=== PATIENT | male | born 1950 ===

== ENCOUNTER 2022-04-05 08:00 | Inpatient (IN) | payer OTHER ==
[~2022-04-05] VITALS: Ht 167.6 cm; Wt 72.6 kg
[~2022-04-05 08:00] MED LIST: CLONAZEPAM1 MG PO; DOCUSATE SODIU100 MG PO; METFORMIN HCL500 MG PO; PERCOCET 5/3251 TAB PO
[2022-04-16] MEDS ORDERED: TAMSULOSIN HCL0.4 MG (10:59)
[2022-04-16] MEDS ORDERED: FLONASE16 GM (10:59)
[2022-04-16] MEDS ORDERED: JANUVIA100 MG (10:59)
[2022-04-16] MEDS ORDERED: MEDROLPACK PO (12:41)
[2022-04-16] MEDS ORDERED: AMOX-CLAV 875-1 EACH PO (12:41)
[2022-04-16] MEDS ORDERED: PERCOCET 5-3251 EACH PO (12:41)
[2022-04-16] MEDS ORDERED: NEURONTIN800 MG PO (12:41)
[2022-04-16] MEDS ORDERED: COLACE100 MG PO (12:42)
== END 2022-04-18 10:21 | disposition home or self-care (01) | DRG 455 ==
LOC: ADM 08:00 → O/R 04-16 06:54 → SURG 04-16 06:54 → CIR.AMB 04-16 08:45 → EDSTATUS 04-16 08:45 → SURG 04-16 15:30
PROVIDERS: ADMIT Orthopaedic Surgery Orthopaedic Surgery of the Spine; ATTEND Orthopaedic Surgery Orthopaedic Surgery of the Spine
PROC: 0SG1071 Fusion of 2 or more Lumbar Vertebral Joints with Autologous Tissue Substitute, Posterior Approach, Posterior Column, Open Approach (ICD-10-PCS; 2022-04-16)
PROC: 0ST20ZZ Resection of Lumbar Vertebral Disc, Open Approach (ICD-10-PCS; 2022-04-16)
PROC: XRGC0R7 Fusion of 2 or more Lumbar Vertebral Joints using Custom-Made Anatomically Designed Interbody Fusion Device, Open Approach, New Technology Group 7 (ICD-10-PCS; principal; 2022-04-16 15:30)
DX: M96.0 Pseudarthrosis after fusion or arthrodesis (principal); M41.86 Other forms of scoliosis, lumbar region; M48.062 Spinal stenosis, lumbar region with neurogenic claudication